=== PATIENT | male | born 1970 | race African-American/Black ===

== ENCOUNTER 2017-05-08 08:50 | Day surgery (SDC) | payer OTHER ==
[~2017-05-08] VITALS: Ht 175.3 cm; Wt 93.9 kg
[~2017-05-08 08:50] MED LIST: CALCIUM ACETAT667 M2 PO; CARDURA XL4 MG PO; CATAPRES0.1 MG PO; COUMADIN2.5 MG PO; Coreg PO; DIALYVITE TABL1 EACH PO; FUROSEMIDE40 MG PO; HYDROCODON-ACE1 EAC7 PO; LASIX80 MG PO; LIPITOR80 MG PO; LYRICA50 MG PO; METOLAZONE5 MG PO; NEXIUM40 MG PO; PACERONE400 MG PO; PLAVIX75 MG PO; PRINIVIL5 MG PO; RENVELA800 MG PO; ROCALTROL0.25 MCG PO; SENSIPAR60 MG PO; SERTRALINE HCL50 MG PO; SIMVASTATIN20 MG PO; Sensipar PO; TOPROL XL100 MG PO; VITAMIN B-122000 MCG PO; Vicodin,Norco 5/325 PO; ZOLOFT25 MG PO; celeBREX PO
[2017-05-08 09:47] LABS: HEMATOCRIT 39.2 % (38.0-50.0); HEMOGLOBIN 12.5 G/DL (12.5-16.6); MCHC 31.9 G/DL (30.0-36.0); MCV 100.3 FL (86-99); PLATELET COUNT 136 K/uL (156-360); RBC DIS.WIDTH-CV 15.2 % (11.8-14.6); RBC DIS.WIDTH-SD 54.6 % (39-53); RED BLOOD COUNT 3.91 M/uL (4.00-5.50); WHITE BLOOD COUNT 7.8 K/uL (4.1-10.2)
[2017-05-08 10:09] LABS: CHLORIDE 90 MEQ/L (99-109); CREATININE 5.4 MG/DL (0.6-1.3); GFR ESTIMATE (CALCULATED) 15 mL/min/ (58.99-99999); GLUCOSE 126 mg/dL (70-99); POTASSIUM 3.3 MEQ/L (3.7-5.4); SODIUM 138 MEQ/L (136-147); UREA NITROGEN (BUN) 41 mg/dL (9-23)
[2017-05-08 10:13] VITALS: BP 127/74
[2017-05-08 10:21] LABS: INTER. NORMALIZED RATIO 1.6
[2017-05-08 10:24] LABS: PTT 30.8 SEC (25-37)
[2017-05-08] MEDS ORDERED: NORCO 5/3251 TABLET PO (13:06)
[2017-05-08 13:32] VITALS: BP 128/68
[2017-05-08 14:00] VITALS: BP 126/66
== END 2017-05-08 14:15 | disposition home or self-care (01) ==
LOC: SDC 08:50
PROVIDERS: Surgery
DX: T82.858A Stenosis of other vascular prosthetic devices, implants and grafts, initial encounter (principal); Y83.2 Surgical operation with anastomosis, bypass or graft as the cause of abnormal reaction of the patient, or of later complication, without mention of misadventure at the time of the procedure; I12.9 Hypertensive chronic kidney disease with stage 1 through stage 4 chronic kidney disease, or unspecified chronic kidney disease; E11.22 Type 2 diabetes mellitus with diabetic chronic kidney disease; N18.6 End stage renal disease; E78.5 Hyperlipidemia, unspecified; Z95.0 Presence of cardiac pacemaker; Z79.01 Long term (current) use of anticoagulants; Z79.02 Long term (current) use of antithrombotics/antiplatelets; Z82.49 Family history of ischemic heart disease and other diseases of the circulatory system; Z83.3 Family history of diabetes mellitus
CPT/HCPCS: 80048; 82948; 85027; 85610; 85730; 87641; C1725; C1769; C1894; J0690; J1644; J2250; J3010